=== PATIENT | female | born 1985 ===

== ENCOUNTER 2017-11-21 18:00 | Emergency (ER) | payer SELFPAY ==
[2017-11-21] MEDS: DIPHENHYDRAMINE 50 MG INJ IV (19:39)
[2017-11-21] MEDS: SOD CHLORIDE 0.9% 1,000 ML IV (19:39)
[2017-11-21] MEDS: KETOROLAC 30 MG INJ IV (19:55)
[2017-11-21] MEDS: METOCLOPRAMIDE 10 MG INJ IV (19:56)
== END 2017-11-21 20:54 | disposition home or self-care (01) ==
LOC: FTE 18:00
DX: R51 Headache (principal); F41.9 Anxiety disorder, unspecified; M25.532 Pain in left wrist
CPT/HCPCS: 73110; 73110-LT; 81025; 96374; 96375; 99284-25